=== PATIENT | female | born 1960 | race Caucasian/White ===

== ENCOUNTER → 2017-10-19 | Outpatient (CLI) | payer OTHER | LOC: CFH 13:41 | PROVIDERS: ATTEND Nurse Practitioner | DX: J32.9 Chronic sinusitis, unspecified (principal); J34.2 Deviated nasal septum; G89.29 Other chronic pain | CPT/HCPCS: 70486 ==

== ENCOUNTER → 2018-05-10 | Outpatient (CLI) | payer OTHER | END | disposition home or self-care (01) | LOC: CFH 08:10 | PROVIDERS: ATTEND Nurse Practitioner | DX: Z12.31 Encounter for screening mammogram for malignant neoplasm of breast (principal) | CPT/HCPCS: 77063; 77067 ==